=== PATIENT | male | born 1970 | race Hispanic/Latino ===

== ENCOUNTER 2021-06-16 21:40 | Emergency (ER) | payer OTHER ==
[~2021-06-16] VITALS: Ht 165.1 cm; Wt 74.4 kg
[2021-06-16 23:32] VITALS: BP 133/87
[2021-06-16] MEDS ORDERED: MECL-226 PO (23:46)
== END 2021-06-17 00:02 | disposition home or self-care (01) ==
LOC: EDH 21:40
DX: H83.09 Labyrinthitis, unspecified ear (principal); R42 Dizziness and giddiness; I10 Essential (primary) hypertension; Z90.89 Acquired absence of other organs; Z98.890 Other specified postprocedural states
CPT/HCPCS: 93005